=== PATIENT | male | born 1985 | race Two or more races ===

== ENCOUNTER 2023-12-17 22:51 | Emergency (ER) | payer BC, OTHER | END 2023-12-18 00:22 | disposition home or self-care (01) | LOC: JD.ED 22:51 | DX: M79.675 Pain in left toe(s) (principal); R22.42 Localized swelling, mass and lump, left lower limb; Z86.16 Personal history of COVID-19; F17.210 Nicotine dependence, cigarettes, uncomplicated; E66.9 Obesity, unspecified; Z68.41 Body mass index [BMI] 40.0-44.9, adult | CPT/HCPCS: 73660-26-T3; 73660-T3; 99282; 99283 ==